=== PATIENT | female | born 1945 | race Caucasian/White ===

== ENCOUNTER → 2017-12-25 | Outpatient (CLI) | payer MEDICARE, OTHER ==
[~2017-12-25] MED LIST: CLOPIDOGREL; HCTZ 25MG25 MG PO; INSULIN LANTUS; LISINOPRIL20 MG PO; METFORMIN500 MG PO; PRILOSEC 20MG20 MG PO; SYNTHROID0.175 MG PO; ZOLOFT50 MG PO
== END ==
LOC: COL.RAD 07:27
DX: R74.0 Nonspecific elevation of levels of transaminase and lactic acid dehydrogenase [LDH] (principal)

== ENCOUNTER 2018-01-15 13:12 | Emergency (ER) | payer MEDICARE, OTHER ==
[~2018-01-15] VITALS: Ht 177.8 cm; Wt 93.6 kg
[2018-01-15] MEDS ORDERED: PERCOCET 325 MG1 TA2 PO (15:22)
[2018-01-15] MEDS ORDERED: CEPHALEXIN500 M1 PO (15:22)
[2018-01-15 16:58] VITALS: BP 131/71; PULSE 65
== END 2018-01-15 16:48 | disposition home or self-care (01) ==
LOC: COL.ER 13:12
DX: S02.5XXA Fracture of tooth (traumatic), initial encounter for closed fracture (principal); S01.511A Laceration without foreign body of lip, initial encounter; I25.10 Atherosclerotic heart disease of native coronary artery without angina pectoris; Z90.710 Acquired absence of both cervix and uterus; Z85.3 Personal history of malignant neoplasm of breast; Z79.02 Long term (current) use of antithrombotics/antiplatelets; Z90.13 Acquired absence of bilateral breasts and nipples; Z88.6 Allergy status to analgesic agent; W01.0XXA Fall on same level from slipping, tripping and stumbling without subsequent striking against object, initial encounter; Y92.009 Unspecified place in unspecified non-institutional (private) residence as the place of occurrence of the external cause
CPT/HCPCS: J1170; J2405; Q4050

== ENCOUNTER 2021-09-30 16:17 | Emergency (ER) | payer MEDICARE, OTHER ==
[~2021-09-30] VITALS: Ht 175.3 cm; Wt 93.6 kg
[~2021-09-30 16:17] MED LIST changes: +CEPHALEXIN500 M1 PO; +PERCOCET 325 MG1 TA2 PO
[2021-09-30 16:30] VITALS: TEMP 97.5
[2021-09-30 17:13] LABS: BASO % 0.3 % (0.0-2.0); EOS # 0.1 K/mm3 (0.0-0.7); EOS % 1.7 % (0.0-4.0); GRAN # 2.5 K/mm3 (1.4-6.5); GRAN % 68.6 % (42.2-75.2); HEMOGLOBIN 12.4 g/dl (12.5-16.0); LYMPH # 0.7 K/mm3 (1.2-3.4); LYMPH % 20.7 % (20.0-51.0); MEAN CELL VOLUME 88 fl (80.0-100.0); MEAN CORPUSCULAR HEMOGLOBIN 31 pg (27-31); MEAN CORPUSCULAR HGB CONC 35 g/dl (33.0-37.0); MEAN PLATELET VOLUME 9.8 fl (7.4-10.4); MONO # 0.3 K/mm3 (0.1-0.6); MONO % 8.4 % (1.7-9.3); PLATELET COUNT 86 K/mm3 (130-400); REDCELL DISTRIBUTION WIDTH-CV 12.5 % (11.5-14.5)
[2021-09-30 17:14] LABS: HEMATOCRIT 35.2 % (37.0-47.0)
[2021-09-30 17:27] LABS: ALANINE AMINOTRANSFERASE 44 U/L (0-55); ALBUMIN 3.9 gm/dL (3.4-4.8); ALKALINE PHOSPHATASE 51 U/L (40-150); ANION GAP 10 mmol/L (7-16); AST,SGOT 38 U/L (5-34); BILIRUBIN,TOTAL 0.7 mg/dL (0.2-1.2); BLOOD UREA NITROGEN 10 mg/dL (10-20); C-REACTIVE PROTEIN 0.18 mg/dL (0.00-0.50); CALCIUM 9.6 mg/dL (8.4-10.2); CARBON DIOXIDE 27 mmol/L (23-31); CHLORIDE 96 mmol/L (98-107); CREATININE, serum 0.96 mg/dL (0.57-1.11); GLUCOSE 139 mg/dL (70-99); POTASSIUM 3.9 mmol/L (3.5-4.5); SODIUM 133 mmol/L (136-145); TOTAL PROTEIN 7.3 gm/dL (6.2-8.1)
[2021-09-30 17:34] LABS: TROPONIN-I < 0.010 ng/mL (0.00-0.033)
[2021-09-30] MEDS ORDERED: LIPITOR20 MG PO (18:30)
[2021-09-30] MEDS ORDERED: PRILOSEC 20MG20 MG PO (18:30)
[2021-09-30] MEDS ORDERED: COREG 25MG25 MG/TAB PO (18:31)
[2021-09-30] MEDS ORDERED: ONE-A-DAY ESSE1 EACH PO (18:31)
[2021-09-30] MEDS ORDERED: NATURAL FISH1200 MG (18:31)
[2021-09-30 18:48] VITALS: BP 170/87; PULSE 73
== END 2021-09-30 18:45 | disposition home or self-care (01) ==
LOC: COL.ER 16:17
PROVIDERS: Emergency Medicine
DX: I10 Essential (primary) hypertension (principal); Z95.5 Presence of coronary angioplasty implant and graft; Z95.0 Presence of cardiac pacemaker; Z86.69 Personal history of other diseases of the nervous system and sense organs; Z20.822 Contact with and (suspected) exposure to COVID-19; Z79.02 Long term (current) use of antithrombotics/antiplatelets
CPT/HCPCS: J0360

== ENCOUNTER 2023-11-27 21:39 | Inpatient (IN) | payer MEDICARE, OTHER ==
[~2023-11-27] VITALS: Ht 175.3 cm; Wt 90.9 kg
[~2023-11-27 21:39] MED LIST changes: +APRESOLINE 25MG25 MG PO; +ASPIRIN 81M81 MG/TA2 PO; +ATACAND32 MG PO; +CIPRO 500MG TA500 MG PO; +COREG 25MG25 MG/TAB PO; +CRESTOR20 MG PO; +FERROUSAL325 MG PO; +LIPITOR20 MG PO; +NATURAL FISH1200 MG; +NITROSTAT0.4 MG/TAB SL; +ONE-A-DAY ESSE1 EACH PO; +PROTONIX20 MG PO; +SYNTHROID0.125 MG/T PO; +ZOLOFT 50MG50 MG PO
[2023-11-27] MEDS ORDERED: NS 500 ML IV ONE (22:15)
[2023-11-27 22:17] LABS: BASO % 0.3 % (0.0-2.0); EOS # 0.1 K/mm3 (0.0-0.7); EOS % 1.3 % (0.0-4.0); GRAN # 2.9 K/mm3 (1.4-6.5); HEMATOCRIT 36.8 % (37.0-47.0); LYMPH # 0.8 K/mm3 (1.2-3.4); LYMPH % 18.8 % (20.0-51.0); MEAN CELL VOLUME 89 fl (80.0-100.0); MEAN CORPUSCULAR HEMOGLOBIN 31 pg (27-31); MEAN CORPUSCULAR HGB CONC 35 g/dl (33.0-37.0); MONO # 0.3 K/mm3 (0.1-0.6); MONO % 6.3 % (1.7-9.3); PLATELET COUNT 95 K/mm3 (130-400); RED BLOOD COUNT 4.16 M/mm3 (4.10-5.30); REDCELL DISTRIBUTION WIDTH-CV 12.2 % (11.5-14.5)
[2023-11-27 22:20] LABS: INR 1.1 (0.8-3.0); PROTHROMBIN TIME 11.7 SECONDS (9.7-12.8)
[2023-11-27 22:22] LABS: PARTIAL THROMBOPLASTIN TIME 32.4 SECONDS (26.0-37.0)
[2023-11-27 22:27] LABS: ALBUMIN 3.9 g/dL (3.4-4.8); BILIRUBIN,TOTAL 0.5 mg/dL (0.2-1.2); CALCIUM 9.6 mg/dL (8.4-10.2); CREATININE, serum 0.88 mg/dL (0.57-1.11); POTASSIUM 4.7 mEq/L (3.5-4.5); TOTAL PROTEIN 7.2 g/dl (6.2-8.1)
[2023-11-27 22:30] LABS: COLLECTION METHOD CLEAN CATCH
[2023-11-27 22:33] LABS: TROPONIN-I 0.016 ng/mL (0.00-0.033)
[2023-11-27 22:37] LABS: URINE APPEARANCE CLOUDY (CLEAR/HAZY); URINE BLOOD NEGATIVE (NEGATIVE); URINE COLOR YELLOW (YELLOW); URINE GLUCOSE NEGATIVE (NEGATIVE); URINE KETONE NEGATIVE (NEGATIVE); URINE NITRATE NEGATIVE (NEGATIVE); URINE PROTEIN(semi-quant) NEGATIVE (NEGATIVE)
[2023-11-28] VITALS (459 sets, daily range): BP systolic 118–177; BP diastolic 54–85; PULSE 60–86; TEMP 97.9–99.2; O2SAT 94–100
[2023-11-28] MEDS ORDERED: Iohexol 300 - 100 ML VIAL IV ONE (00:23)
[2023-11-28] MEDS ORDERED: NS 100 ML IV ONE (00:26)
[2023-11-28] MEDS ORDERED: ALDACTONE 25MG25 M1 PO (00:42)
[2023-11-28] MEDS ORDERED: NS 1,000 ML IV SCH (01:45)
[2023-11-28] MEDS ORDERED: cefTRIAXone 1 G in Water For Injection,Sterile 10 ML IV SCH (02:00)
[2023-11-28] MEDS ORDERED: hydrALAZINE 20 MG/ML 1 ML VIAL IV ONE (02:15)
[2023-11-28] MEDS ORDERED: niCARdipine 200 ML IV SCH (02:15)
--- NOTE | 2023-11-28 03:40 | NUR ---
0330 Report recieved from SID Iglesias in the ED. 0340 Pt arrrived to ICU via ED cart. SID Iglesias at bedside with pt at time of arrival. Pt belongings (clothes, purse, shoes) placed in cabinet. Pt is wearing glasses. Pt states she has hearing aids and is in possession of one, is said to have the other hearing aid at the house and will bring. Pt is wearing a wedding ring and would like to keep it on. IV fluids infusing to peripheral IV without complications. Pt attached to monitors, VSS. Pt does not complain of pain or discomfort at this time. Pt ambulated to the toilet via SBA without difficulty. Pt currently resting quietly in bed. Pt does not have any questions or concerns at this time.
[2023-11-28] MEDS ORDERED: Dextrose 50% Water 25 GM/50 ML SYRINGE IV PRN (04:30)
[2023-11-28] MEDS ORDERED: Glucagon 1 MG VIAL IM PRN (04:30)
[2023-11-28] MEDS ORDERED: Dextrose (Glucose) 15 GM (4 x 3.75 GM) Chewable TABLET PACK PO PRN (04:30)
[2023-11-28] MEDS ORDERED: BYSTOLIC20 MG PO (04:39)
[2023-11-28] MEDS ORDERED: CATAPRES-TTS 30.3 MG TD (04:41)
[2023-11-28] MEDS ORDERED: PLAVIX 75MG TAB75 MG PO (04:44)
[2023-11-28] MEDS ORDERED: GLUCOPHAGE XR500 M1 PO (04:46)
[2023-11-28] MEDS ORDERED: hydrALAZINE 20 MG/ML 1 ML VIAL IV PRN (05:00)
[2023-11-28] MEDS ORDERED: Insulin Lispro (HumaLOG) SQ SCH (06:00)
[2023-11-28 06:29] LABS: BASO % 0.2 % (0.0-2.0); GRAN # 3.7 K/mm3 (1.4-6.5); GRAN % 81.5 % (42.2-75.2); HEMATOCRIT 35.4 % (37.0-47.0); HEMOGLOBIN 12.6 g/dl (12.5-16.0); LYMPH # 0.6 K/mm3 (1.2-3.4); LYMPH % 13.2 % (20.0-51.0); MEAN CELL VOLUME 87 fl (80.0-100.0); MEAN CORPUSCULAR HEMOGLOBIN 31 pg (27-31); MEAN CORPUSCULAR HGB CONC 36 g/dl (33.0-37.0); MEAN PLATELET VOLUME 10.6 fl (7.4-10.4); MONO # 0.2 K/mm3 (0.1-0.6); MONO % 5.1 % (1.7-9.3); PLATELET COUNT 79 K/mm3 (130-400); RED BLOOD COUNT 4.09 M/mm3 (4.10-5.30); REDCELL DISTRIBUTION WIDTH-CV 12.1 % (11.5-14.5)
[2023-11-28 06:39] LABS: CALCIUM 9.2 mg/dL (8.4-10.2); CREATININE, serum 0.78 mg/dL (0.57-1.11); POTASSIUM 4.4 mEq/L (3.5-4.5)
--- NOTE | 2023-11-28 08:24 | NUR ---
PT IS AWAKE AND RESTING IN THE BED. SHE ALERT AND ORIENTED. SHE HAS NO PAIN COMPLAINTS. SHE HAS A PACEMAKER AND IS A-PACED. SHE USES THE TOILET WITH ASSISTANCE WITH THE IV POLE. SHE REMAINS NPO AT THIS TIME.
[2023-11-28] MEDS ORDERED: Sertraline 50 MG TAB PO SCH (09:00)
[2023-11-28] MEDS ORDERED: Clopidogrel 75 MG TAB PO SCH (09:00)
[2023-11-28] MEDS ORDERED: CLONIDINE 0.3 MG TD SCH (09:00)
[2023-11-28] MEDS ORDERED: Docusate Sodium 100 MG CAP PO SCH (09:00)
[2023-11-28] MEDS ORDERED: Famotidine 20 MG TAB PO SCH (09:00)
--- NOTE | 2023-11-28 09:22 | NUR ---
SW met with patient to complete initial assessment for discharge planning. Patient verified that she lives in [place] with her /DINORA Silvestre ([phone]). Patient sees Dr. Dallas Vora as her PCP and uses [facility] pharmacy without difficulty. Patient states she has a cane, walker, shower chair and grab bars at home that she used after knee surgery several months ago but does not currenly use any DME. Patient reports to be independent and able to drive herself to appointments. Plan is to return home. Discharge plan: Home
[2023-11-28] MEDS ORDERED: Bisoprolol 5 MG TAB PO SCH ×2 (10:30→21:00)
[2023-11-28] MEDS ORDERED: Losartan 50 MG TAB PO SCH ×2 (10:30→21:00)
[2023-11-28] MEDS ORDERED: SUBS TO LOSARTAN PO SCH (21:00)
[2023-11-28] MEDS ORDERED: Nebivolol 20 MG **** subs to Bisoprolol 20 MG PO SCH (21:00)
[2023-11-28] MEDS ORDERED: Atorvastatin 40 MG TAB PO SCH (21:00)
[2023-11-28] MEDS ORDERED: Melatonin 3 MG TAB PO PRN (21:00)
[2023-11-28] MEDS ORDERED: CANDESARTAN 32 MG PO SCH (21:00)
[2023-11-28] MEDS ORDERED: Rosuvastatin 20 MG **** subs to Atorvastatin 40 MG PO SCH (21:00)
--- NOTE | 2023-11-28 23:10 | NUR ---
patient lying in bed, alert and oriented x4. denies chest pain and shortness of breath. left arm restiction in place. pt home nitro placed in pt personal belongings bag, pt educated on not using medication while her and that we can provide that if needed, pt verbally understood. (+) orthostatic BPs measured. IV in RAC is patent, site CDI. BLE with nonpitting edema noted. fall precautions in place, call light within reach. pt has no further needs questions or concerns at this time.
[2023-11-29] VITALS (8 sets, daily range): BP systolic 115–184; BP diastolic 57–77; PULSE 60–62; TEMP 98.1–98.2
[2023-11-29 07:25] LABS: BASO % 0.6 % (0.0-2.0); EOS % 1.2 % (0.0-4.0); GRAN # 2.1 K/mm3 (1.4-6.5); GRAN % 62.9 % (42.2-75.2); HEMOGLOBIN 12.1 g/dl (12.5-16.0); LYMPH # 0.9 K/mm3 (1.2-3.4); LYMPH % 26.4 % (20.0-51.0); MEAN CELL VOLUME 87 fl (80.0-100.0); MEAN CORPUSCULAR HEMOGLOBIN 31 pg (27-31); MEAN CORPUSCULAR HGB CONC 36 g/dl (33.0-37.0); MEAN PLATELET VOLUME 10.4 fl (7.4-10.4); MONO # 0.3 K/mm3 (0.1-0.6); MONO % 8.6 % (1.7-9.3); PLATELET COUNT 73 K/mm3 (130-400); RED BLOOD COUNT 3.92 M/mm3 (4.10-5.30); REDCELL DISTRIBUTION WIDTH-CV 12.5 % (11.5-14.5)
[2023-11-29 08:40] LABS: ANION GAP 11 mmol/L (7-16); BLOOD UREA NITROGEN 11 mg/dL (10-20); CALCIUM 9.1 mg/dL (8.4-10.2); CHLORIDE 100 mEq/L (98-107); CHOLESTEROL 114 mg/dL (0-199); CHOLESTEROL RISK RATIO 2.8; CREATININE, serum 0.78 mg/dL (0.57-1.11); GLUCOSE 96 mg/dL (70-99); HDL CHOLESTEROL 40 mg/dL (40-60); LDL CHOLESTEROL 44 mg/dL; MAGNESIUM 1.8 mg/dL (1.6-2.6); POTASSIUM 4.1 mEq/L (3.5-4.5); SODIUM 130 mEq/L (136-145)
[2023-11-29 08:47] LABS: TROPONIN-I < 0.010 ng/mL (0.00-0.033)
--- NOTE | 2023-11-29 08:50 | NUR ---
patient alert and oriented x4. denies pain but reports headache. patient has elevated blood pressure episode this morning. morning meds given. telemetry inplace, on room air. denies any other needs at this time. shift assessement completed. call light within reach. bed at lowest position. bed alarm on.
[2023-11-29] MEDS ORDERED: Influenza Virus Vaccine, Hi-Dose Triv '24-25 (65 YR+) 0.5 ML SYRINGE IM SCH (09:00)
[2023-11-29] MEDS ORDERED: CEFTIN500 MG PO (10:05)
[2023-11-29] MEDS ORDERED: Acetaminophen 500 MG TAB PO ONE (11:45)
--- NOTE | 2023-11-29 13:33 | NUR ---
D: [employer] stopped by room on rounds. A: Pt was resting and content with in the room. 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 [employer] will follow up as needed.
[2023-11-29] MEDS ORDERED: CIPRO 500MG TA500 MG PO (14:07)
--- NOTE | 2023-11-29 14:09 | NUR ---
patient discahrge instructions given. patient verbalized understanding. patient iv removed.patient instructed to call when ride arrives.
--- NOTE | 2023-11-29 14:37 | NUR ---
patient escorted out of unit by pct.
== END 2023-11-29 14:37 | disposition home or self-care (01) | DRG 307 ==
LOC: COL.ER 21:39 → ICU 11-28 01:33 → COL.ER 11-28 02:46 → ICU 11-28 10:25 → MEDICAL 11-28 14:02
PROVIDERS: Emergency Medicine; Internal Medicine; Nurse Practitioner Family; ADMIT Hospitalist
DX: I35.0 Nonrheumatic aortic (valve) stenosis (principal); E87.1 Hypo-osmolality and hyponatremia; N39.0 Urinary tract infection, site not specified; N18.30 Chronic kidney disease, stage 3 unspecified; I16.0 Hypertensive urgency; K21.9 Gastro-esophageal reflux disease without esophagitis; E03.9 Hypothyroidism, unspecified; E87.8 Other disorders of electrolyte and fluid balance, not elsewhere classified; Z96.651 Presence of right artificial knee joint; E87.5 Hyperkalemia; R74.01 Elevation of levels of liver transaminase levels; D69.6 Thrombocytopenia, unspecified; I12.9 Hypertensive chronic kidney disease with stage 1 through stage 4 chronic kidney disease, or unspecified chronic kidney disease; E11.9 Type 2 diabetes mellitus without complications; E78.5 Hyperlipidemia, unspecified; Z95.5 Presence of coronary angioplasty implant and graft; Z95.0 Presence of cardiac pacemaker; Z90.13 Acquired absence of bilateral breasts and nipples; Z90.710 Acquired absence of both cervix and uterus; Z88.6 Allergy status to analgesic agent; Z88.0 Allergy status to penicillin; Z88.2 Allergy status to sulfonamides; I25.2 Old myocardial infarction; Z85.3 Personal history of malignant neoplasm of breast; Z79.84 Long term (current) use of oral hypoglycemic drugs; Z79.899 Other long term (current) drug therapy; Z79.890 Hormone replacement therapy; Z82.41 Family history of sudden cardiac death; Z82.49 Family history of ischemic heart disease and other diseases of the circulatory system
CPT/HCPCS: J0360; J0696; J1650; J1956; J2404; J7030; J7040; Q9967